=== PATIENT | male | born 1935 | race Caucasian/White ===

== ENCOUNTER 2016-09-02 11:21 | Emergency (ER) | payer MEDICARE ==
[2016-09-02 12:48] VITALS: BP 117/67
--- NOTE | 2016-09-02 14:21 | UC ---
Throat Pain/Nasal Miguel HPI - HPI Summary HPI Summary: complaint of sore throat since yesterday can't swallow duie pain nasal congestion and cough that started this morning productive cough this morning felt fever and chills today hx of lymphoma, multiple rounds of pneumonia last 2015 - History of Current Complaint Chief Complaint: UCRespiratory Stated Complaint: COUGH Time Seen by Provider: 09/02/16 14:16 Hx Obtained From: Patient - Allergies/Home Medications Allergies/Adverse Reactions: Allergies Allergy/AdvReac Type Severity Reaction Status Date / Time Celecoxib [From Celebrex] Allergy Mild stomach Verified 09/02/16 12:40 upset Morphine Allergy SEIZURE Verified 09/02/16 12:40 PMH/Surg Hx/FS Hx/Imm Hx Previously Healthy: Yes Endocrine History Of: Denies: Diabetes Cardiovascular History Of: Reports: Hypertension Denies: Congestive Heart Failure Respiratory History Of: Reports: Pneumonia GI/ History Of: Reports: Kidney Stones - HX OF Denies: Renal Disease - Surgical History Surgical History: Yes Surgery Procedure, Year, and Place: tonsilectomy age-40-, right arm, surgical removal kidney stone 1983,rotator cuff left, bilat knees, cholecystectomy - Family History Known Family History: Positive: Hypertension Negative: Cardiac Disease, Diabetes - Social History Occupation: Retired Lives: With Family Alcohol Use: Occasionally Substance Use Type: Prescribed Smoking Status (MU): Former Smoker Amount Used/How Often: 1 PPD X 44 YEARS AGO When Did the Patient Quit Smoking/Using Tobacco: 1970 - Immunization History Most Recent Influenza Vaccination: 2016 Most Recent Tetanus Shot: 2014 Most Recent Pneumonia Vaccination: STATES HAS HAD Review of Systems Constitutional: Chills, Fatigue Skin: Negative Eyes: Negative ENT: Sore Throat, Nasal Discharge Respiratory: Cough Cardiovascular: Negative Gastrointestinal: Negative Genitourinary: Negative Motor: Negative Neurovascular: Negative Musculoskeletal: Negative Neurological: Negative Psychological: Negative All Other Systems Reviewed And Are Negative: Yes Physical Exam Triage Information Reviewed: Yes Appearance: No Pain Distress, Well-Nourished Vital Signs: Initial Vital Signs Temp 99.4 F 09/02/16 12:43 Pulse 101 09/02/16 12:43 Resp 20 09/02/16 12:43 BP 117/67 09/02/16 12:43 Pulse Ox 97 09/02/16 12:43 Vital Signs Reviewed: Yes Eyes: Positive: Conjunctiva Clear ENT: Positive: Pharyngeal erythema, Nasal congestion, Nasal drainage, TMs normal , Tonsillar swelling - left side- no tonsil on right side, Tonsillar exudate Neck: Positive: Enlarged Nodes @ - cervical lymphadenopathy Respiratory: Positive: Lungs clear, Normal breath sounds, No respiratory distress Cardiovascular: Positive: RRR, No Murmur Abdomen Description: Positive: Nontender, Soft Bowel Sounds: Positive: Present Musculoskeletal: Positive: No Edema Neurological: Positive: Alert Psychological Exam: Normal Skin Exam: Normal Throat Pain/Nasal Course/Dx - Course Course Of Treatment: exam completd. will treat for tonsilitis d/t presentation comorbidity of lymphoma - Differential Dx/Diagnosis Differential Diagnosis/HQI/PQRI: Pharyngitis, Tonsillitis, URI Provider Diagnoses: tonsilitis Discharge - Discharge Plan Condition: Stable Disposition: HOME Prescriptions: Clarithromycin TAB* [Biaxin TAB*] 500 mg PO BID #20 tab Patient Education Materials: Tonsillitis (ED) Referrals: [facility] [Outside] Additional Instructions: TONSILLITIS What is Tonsillitis? Tonsillitis is an infectious condition with symptoms characterized by inflamed tonsils, fever, painful swallowing, sore throat, and a slight voice change. Other symptoms include a white or yellow coating on the tonsils, swollen lymph nodes, headache, and bad breath. Nausea, vomiting, and abdominal pain may occur in younger children. Throat infection (pharyngitis) often occurs along with tonsillitis. Tonsillitis may be caused by either viruses or bacteria, and often the symptoms are the same no matter which germ is causing the infection. Bacterial tonsillitis can be treated with antibiotics, but viral tonsillitis cannot. Sometimes healthcare providers differentiate between the two by taking a throat culture (a painless swab of the back of the throat) or a quick step test and send it to the lab. Eighty-five percent of throat cultures are negative for strep; the majority of infections are caused by a virus. Symptoms Might Include: Mild to severe sore throat and difficulty swallowing Fever Swollen, tender neck glands Headache Muscle and joint pain Loss of appetite Ear ache Breathing through the mouth Nausea or vomiting How Long Will My Symptoms Last? When tonsillitis is caused by Group A streptococci, fever usually stops within 48 hours, and the sore throat disappears soon afterward. With antibiotic treatment, the illness is usually cured within 1 week, but it may take several weeks for the tonsils and swollen glands to return to normal size. When tonsillitis is caused by viruses, the length of illness depends on which virus is involved. Most people are almost completely recovered within 1 week. Contagiousness: All forms of tonsillitis are contagious. Tonsillitis usually spreads from person to person by contact with the throat or nasal fluids of someone who is already infected. Drinking glasses and eating utensils should be kept separate from those of other family members and should be washed with hot soapy water, or washed in the hot mill supervisor. All family members should was their hand frequently. If you have a cough, be sure to cover your mouth when coughing. Place used tissues directly in the garbage can. Revised 2015 Page 2 of 2
== END 2016-09-02 14:50 | disposition home or self-care (01) ==
LOC: UCCORT 11:21
DX: J03.90 Acute tonsillitis, unspecified (principal); Z85.72 Personal history of non-Hodgkin lymphomas; Z87.891 Personal history of nicotine dependence; Z88.5 Allergy status to narcotic agent; Z88.6 Allergy status to analgesic agent
CPT/HCPCS: 99212; G0463

== ENCOUNTER 2019-01-15 08:24 | Day surgery (SDC) | payer MEDICARE ==
[~2019-01-15 08:24] MED LIST: Buffered Lidocaine 1% SYRIN* 1 ML/SYRINGE INTRADERM ONE; Lactated Ringers 1000 ML Bag* 1,000 ML IV SCH; Sodium Citrate/Citric Acid* 15 ML UDC PO ONE
[2019-01-15] MEDS ORDERED: ceFAZolin 2 GM in NS PREMIX(*) 2 GM/100 ML BAG IVPB ONE (08:53)
[2019-01-15] MEDS ORDERED: Sodium Citrate/Citric Acid* 15 ML UDC ONE (08:53)
[2019-01-15] MEDS ORDERED: Naloxone* 0.4 MG/ML 1 ML VIAL IV PRN (09:17)
[2019-01-15] MEDS ORDERED: Bupivacaine 0.25% EPI 200,000* 30 ML SDV ONE (09:39)
[2019-01-15] MEDS ORDERED: Bupivacaine 0.25% SDV PF* 10 ML VIAL INJ ONE (09:53)
[2019-01-15] MEDS ORDERED: Propofol* 10 MG/ML 20 ML BTL ONE (09:57)
[2019-01-15] MEDS ORDERED: Lidocaine 2% PF * 5 ML VIAL ONE (09:57)
[2019-01-15] MEDS ORDERED: fentaNYL* 50 MCG/ML 2 ML VIAL (100 MCG VIAL) ONE (09:57)
--- NOTE | 2019-01-15 11:24 | OP ---
DATE OF OPERATION: 01/15/19 - [facility] DATE OF : 31 SURGEON: Bc Bañuelos MD. PRE-OP DIAGNOSIS: Left axillary adenopathy. POST-OP DIAGNOSIS: Left axillary adenopathy. OPERATIVE PROCEDURE: Excised large left axillary lymph node. INDICATIONS: History of lymphoma and new large left axillary nodes. Risks of excision including but not limited to bleeding, infection, seroma were explained to the patient, who seemed to understand and agreed to the procedure and all questions were answered. DESCRIPTION OF PROCEDURE: The patient was taken to the operating room and placed supine. Preoperative antibiotics were given. After the successful induction of sedation, the left axilla was prepped and draped in sterile fashion. The skin was anesthetized with 0.25% Marcaine plain. Incision was made over the palpable node and carried down to the deep subcutaneous tissue. Within the axilla was a large 3 cm lymph node, which was sharply and bluntly excised from the surrounding tissue. Bovie cautery was used for hemostasis. The vascular branch was tied off with 2-0 Vicryl. The wound was irrigated. Estimated blood loss minimal. Hemostasis was intact. The node was sent fresh to pathology. Deep layers were closed with 3-0 Vicryl and the skin was closed with 3-0 Monocryl. Glue was applied. He tolerated the procedure well. [id number]/[facility] #: [id number] MTDD
[2019-01-15] MEDS ORDERED: Acetaminophen TAB* 325 MG ONE (11:34)
[2019-01-15 11:36] VITALS: BP 93/55
== END 2019-01-15 20:50 | disposition home or self-care (01) ==
LOC: OR 08:24
PROVIDERS: ATTEND Surgery
DX: C85.84 Other specified types of non-Hodgkin lymphoma, lymph nodes of axilla and upper limb (principal); C91.10 Chronic lymphocytic leukemia of B-cell type not having achieved remission; Z86.711 Personal history of pulmonary embolism; Z79.01 Long term (current) use of anticoagulants; M19.90 Unspecified osteoarthritis, unspecified site; D64.9 Anemia, unspecified
CPT/HCPCS: 88184; 88187; 88188; 88189; 88305; 88333; 88341; 88342; 88360; A9270-GY; J0690; J2704; J3010; J3490

== ENCOUNTER 2019-01-21 09:16 | Inpatient (IN) | payer MEDICARE ==
[2019-01-21 10:27] LABS: Urine Appearance Clear; Urine Bacteria Absent (Absent); Urine Bilirubin Negative (Negative); Urine Blood Negative (Negative); Urine Color Yellow; Urine Glucose Negative (Negative); Urine Ketones Negative (Negative); Urine Nitrite Negative (Negative); Urine Protein Negative (Negative); Urine Red Blood Cell Trace(0-2/hpf) (Absent); Urine Specific Gravity 1.012 (1.010-1.030); Urine Squamous Epithelial Cell Present (Absent); Urine Urobilinogen Negative (Negative); Urine White Blood Cell Trace(0-5/hpf) (Absent)
[2019-01-21 11:08] LABS: Hematocrit 24 % (42-52); Hemoglobin 7.7 g/dL (14.0-18.0); Mean Corpuscular HGB Conc 33 g/dL (31-36); Mean Corpuscular Hemoglobin 27 pg (27-31); Mean Corpuscular Volume 84 fL (80-94); Mean Platelet Volume 7.1 fL (7.4-10.4); Platelet Count 181 10^3/uL (150-450); Red Blood Count 2.82 10^6 /uL (4.18-5.48); Red Cell Distribution Width 19 % (10-15)
[2019-01-21 11:19] LABS: ALT 5 U/L (7-52); AST 9 U/L (13-39); Albumin 1.7 g/dL (3.2-5.2); Albumin/Globulin Ratio 0.6 (1-3); Alkaline Phosphatase 106 U/L (34-104); Anion Gap 2 mmol/L (2-11); BUN/Creatinine Ratio 20.3 (8-20); Blood Urea Nitrogen 12 mg/dL (6-24); CO2 Carbon Dioxide 30 mmol/L (22-32); Calcium 7.8 mg/dL (8.6-10.3); Chloride 106 mmol/L (101-111); EGFR Non-African American 130.6 (>60); Globulin 2.9 g/dL (2-4); Glucose 93 mg/dL (70-100); Magnesium 1.9 mg/dL (1.9-2.7); Sodium 138 mmol/L (135-145); Total Protein 4.6 g/dL (6.4-8.9)
--- OUTSIDE RECORDS SUMMARY | 2019-01-21 11:21 | XMS REPORT | Continuity of Care Document ---
:1935 External Reference #:[id number] Author Name Shannon Lion Care Team Providers Name Role Phone Vincent James NP Primary Care Physician Unavailable Payers Date Identification Numbers Payment Provider Subscriber Effective: 2018 Policy Number: [id number] Medicare Kaden Salazar PayID: [id number] [address] [place] [address] Effective: 1997 Policy Number: [id number] Medicare Kaden Salazar Expires: 2018 Group Name: Medicare [address] PayID: [id number] [place] [address] Policy Number: [id number] [facility] Kaden Delong [place] PayID: [id number] [address] [place] [address] Onset: 1999 Policy Number: [id number] Special Funds Sec 25-A Kaden Salazar Group Number: [id number] [address] PayID: [id number] [place] [address] Onset: 2005 Policy Number: [id number] [employer] Kaden Salazar Group Number: [id number] [address] PayID: [id number] [place] [address] Policy Number: [id number] WC Controverted Kaden Delong Martin Group Number: [id number] Nca Comp PayID: [id number] Onset: 1999 Group Name: Workers[employer] Compensation Mobile [place] Kaden Salazar [address] [place] [address] Problems Active Problems Provider Date Cervical spondylosis without myelopathy Agusto Urbano M.D. Onset: 11/17/2016 Neck pain Agusto Urbano M.D. Onset: 11/17/2016 Flatulence, eructation and gas pain Mikaela Garcia NP Onset: 09/19/2018 History of non-Hodgkins lymphoma Mikaela Garcia NP Onset: 09/19/2018 Family History Date Family Member(s) Observation Comments General Unknown Father due to Leukemia () Mother due to Childbirth () Siblings 3 one brother at 17 from Hodgkins Lymphoma one brother at 85 old age sister has cancer/lymphoma Social History Type Date Description Comments Sex Unknown Marital Status Lives With Occupation Retired shuttle bus driver ETOH Use Occasionally consumes alcohol Tobacco Use Start: Unknown End: Patient is a former smoker Unknown Smoking Status Reviewed: 01/08/19 Patient is a former smoker Allergies, Adverse Reactions, Alerts Active Allergies Reaction Severity Comments Date Celebrex GI upset 08/01/2013 Rituximab anaphylaxis 11/17/2016 Morphine seizure 12/13/2016 Medications Active Medications SIG Qnty Indications Ordering Provider Date Zantac 150 Maximum take one pill 90tabs Mikaela Garcia NP 08/01/2018 Strength every evening 150mg Tablets Lyrica 1 capsule by Unknown 225mg Capsules mouth daily Xarelto 1 tab daily Unknown 10mg Tablets Alfuzosin HCL ER Take One Tablet Unknown 10mg By Mouth Daily Tablets ER 24HR Omeprazole 1 by mouth every Unknown 40mg day Capsules DR Vitamin B12 1 by mouth every Unknown 1000mcg day Tablets ER History Medications Acid Wood Last Maker Mikaela Garcia NP 07/04/2018 - 75mg 07/04/2018 Tablets Acid Wood Last Maker take one at night 30tabs Mikaela Garcia NP 07/04/2018 - 150mg 07/27/2018 Tablets Amoxicillin take 4 tabs by 4czoie Hardy 09/16/2015 - 500mg mouth 1 hour prior M.D. 12/12/2016 Capsules to dental work Ranitidine 150 one by mouth once 90tabs Mikaela Garcia NP - Maximum Strength a day 08/01/2018 150mg Tablets Gabapentin 1 by mouth two Unknown - 300mg times a day 07/27/2018 Capsules Pantoprazole Sodium 1 by mouth every Unknown - day 07/03/2018 40mg Tablets Nystjamil Use Three Times A Unknown - 307650Polv/GM Day To Area Of 07/03/2018 Powder Rash Under Breast Hydroxyzine HCL Take One Tablet By Unknown - 25mg Mouth Twice A Day 07/26/2018 Tablets as Needed Vitamin D-400 1 by mouth every Unknown - 400 day 07/26/2018 Tablets Albuterol Sulfate 2 puffs every 4 Unknown - hours as needed 07/03/2018 Powder sob Coumadin take as directed Unknown - Tablets 07/03/2018 Fish Oil 1 by mouth every Unknown - 1000mg day 12/12/2016 Capsules Ibuprofen 2 po every4- 6 Unknown - 200mg Tablets hours as needed 07/04/2018 Bactroban topically bid prn 15gm Unknown - 2% Cream 12/12/2016 Vitamin B-12 CR 1 po qd Unknown - 12/12/2016 400Units Tablets ER Vitamin E-400 1 po qd Unknown - 400Unit 12/12/2016 Capsules Omeprazole 1 po qd 90caps Unknown - 40mg 12/12/[address] Losartan Potassium 1 po qd 90tabs Unknown - 07/03/2018 100mg Tablets Lyrica 1 po daily. 60caps Unknown - 225mg Capsules 07/03/2018 Medications Administered in Office Medication SIG Qnty Indications Ordering Provider Date Depomedrol 40MG Carlota Hardy M.D. 12/13/2016 Injection Depomedrol 80MG Carlota Hardy M.D. 08/01/2013 Injection Depomedrol 80MG Carlota Hardy M.D. 08/01/2013 Injection Depomedrol 80MG Carlota Hardy M.D. 08/01/2013 Injection Immunizations CPT Code Status Date Vaccine Lot # [id number] Given 06/27/2018 Influenza Virus Vaccine, Quadrivalent, Split, [id number] Preservative Free [id number] Given 05/09/1998 Flu Vaccine 85711 Given 05/08/1996 Flu Vaccine 05513 Given 07/14/1995 Flu Vaccine 77723 Given 06/07/1994 Flu Vaccine Vital Signs Date Vital Result Comment 01/08/2019 1:25pm Height 66 inches 5'6" Weight 166.00 lb Heart Rate 90 /min BP Systolic Sitting 122 mmHg BP Diastolic Sitting 54 mmHg Respiratory Rate 20 /min Body Temperature 97.6 F BMI (Body Mass Index) 26.8 kg/m2 09/19/2018 2:42pm Height 66 inches 5'6" Weight 181.12 lb Heart Rate 88 /min BP Systolic Sitting 116 mmHg large adult cuff left arm BP Diastolic Sitting 66 mmHg large adult cuff left arm O2 % BldC Oximetry 98 % at rest on room air BMI (Body Mass Index) 29.2 kg/m2 08/29/2018 1:16pm Height 66 inches 5'6" Weight 182.00 lb Heart Rate 80 /min BP Systolic 117 mmHg BP Diastolic 62 mmHg Respiratory Rate 20 /min Body Temperature 96.0 F O2 % BldC Oximetry 99 % BMI (Body Mass Index) 29.4 kg/m2 08/01/2018 2:30pm Height 66 inches 5'6" Weight 184.00 lb Heart Rate 90 /min BP Systolic 127 mmHg BP Diastolic 65 mmHg Respiratory Rate 20 /min Body Temperature 97.9 F O2 % BldC Oximetry 96 % BMI (Body Mass Index) 29.7 kg/m2 07/04/2018 1:43pm Height 66 inches 5'6" Weight 194.00 lb Heart Rate 95 /min BP Systolic 101 mmHg BP Diastolic 62 mmHg Respiratory Rate 20 /min Body Temperature 97.9 F O2 % BldC Oximetry 97 % BMI (Body Mass Index) 31.3 kg/m2 12/13/2016 10:58am Height 66 inches 5'6" Weight 188.00 lb Heart Rate 88 /min BP Systolic 124 mmHg BP Diastolic 66 mmHg Respiratory Rate 17 /min Body Temperature 96.3 F BMI (Body Mass Index) 30.3 kg/m2 11/17/2016 1:32pm Height 67 inches 5'7" Weight 188.00 lb Heart Rate 80 /min BP Systolic Sitting 128 mmHg BP Diastolic Sitting 78 mmHg Pain Level 4 BMI (Body Mass Index) 29.4 kg/m2 08/01/2013 10:36am Height 67 inches 5'7" Weight 200.00 lb BMI (Body Mass Index) 31.3 kg/m2 Results Test Date Facility Test Result H/L Range Note Laboratory test 02/05/201 [facility] Vitamin B12 1343 pg/mL High 180-914 1 finding 9 [address] [place] [address] [phone] Protein [facility] Total 5.5 g/dL Abnormal 6.3 - 7.9 Electrophoresis 9 101 [facility] Protein([place] [address] ) [phone] Albumin 2.2 g/dL Abnormal 3.4-4.7 Alpha-1 Globulin 0.3 g/dL 0.1-0.3 Alpha-2 Globulin 0.8 g/dL 0.6-1.0 Beta Globulin 0.7 g/dL 0.7-1.2 Gamma Globulin 1.4 g/dL 0.6-1.6 Albumin/Globulin Ratio 0.66 M Emanuel 0.5 g/dL Impression See Comment 2 Laboratory test 08/29/2018 [facility] Ferritin 343.7 ng/mL High 24-336 finding [address] [place] [address] [phone] Iron & Iron 08/29/2018 [facility] Iron 40 g/dL Low 50-212 [place] [address] [phone] Unsaturated Iron Binding < 136 g/dL Total Iron Binding Capacity 151 g/dL Low 250-450 Transferrin 108 mg/dL Low 203-362 % Iron Saturation 26 % N 15-55 CBC No Diff 08/29/2018 [facility] White Blood 4.3 10^3/uL N 3.5-10.8 [facility] [place] [address] [phone] Red Blood Count 3.37 10^6/uL Low 4.00-5.40 Hemoglobin 9.8 g/dL Low 14.0-18.0 Hematocrit 30 % Low 42-52 Mean Corpuscular Volume 88 fL N 80-94 Mean Corpuscular Hemoglobin 29 pg N 27-31 Mean Corpuscular HGB Conc 33 g/dL N 31-36 Red Cell Distribution Width 15 % N 10.5-15 Platelet Count 246 10^3/uL N 150-450 Mean Platelet Volume 7.3 fL Low 7.4-10.4 Laboratory 08/29/2018 [facility] Erythropoietin 26.7 Abnormal 2.6 - 3 test finding 101 [facility] mIU/mL 18.5 [place] [address] [phone] LDH 114 U/L Low 140-271 Uric Acid 4.5 mg/dL N 4.4-7.6 Laboratory test 08/01/2018 [facility] Amylase 21 U/L Low 29- 103 finding [address] [place] [address] [phone] CBC No Diff 08/01/2018 [facility] White Blood 3.8 N 3.5-10.8 101 Count 10^3/[place] [address] [phone] Red Blood Count 3.30 10^6/uL Low 4.00-5.40 Hemoglobin 9.9 g/dL Low 14.0-18.0 Hematocrit 29 % Low 42-52 Mean Corpuscular Volume 88 fL N 80-94 Mean Corpuscular Hemoglobin 30 pg N 27-31 Mean Corpuscular HGB Conc 34 g/dL N 31-36 Red Cell Distribution Width 14 % N 10.5-15 Platelet Count 239 10^3/uL N 150-450 Mean Platelet Volume 7.8 fL N 7.4-10.4 Laboratory test 08/01/2018 [facility] Lipase 11 U/L N 11.0- 82.0 finding [address] [place] [address] [phone] Comp Metabolic Panel 08/01/2018 [facility] Sodium 137 mmol/L N 135-145 [address] [place] [address] [phone] Potassium 4.3 mmol/L N 3.5-5.0 Chloride 102 mmol/L N 101-111 Co2 Carbon Dioxide 31 mmol/L N 22-32 Anion Gap 4 mmol/L N 2-11 Glucose 120 mg/dL High 70-100 Blood Urea Nitrogen 14 mg/dL N 6-24 Creatinine 0.80 mg/dL N 0.67-1.17 BUN/Creatinine Ratio 17.5 N 8-20 Calcium 8.9 mg/dL N 8.6-10.3 Total Protein 5.8 g/dL Low 6.4-8.9 Albumin 3.1 g/dL Low 3.2-5.2 Globulin 2.7 g/dL N 2-4 Albumin/Globulin Ratio 1.1 N 1-3 Total Bilirubin 0.60 mg/dL N 0.2-1.0 Alkaline Phosphatase 96 U/L N 34-104 Alt 6 U/L Low 7-52 Ast 10 U/L Low 13-39 Egfr Non- 92.1 >60 Egfr 111.4 >60 4 1 Normal Range 180 to 914 Indeterminate Range 145 to 180 Deficient Range <145 2 M-spike in gamma fraction. Size of monoclonal protein not changed significantly since 03/07/2018 Test Performed by: [facility] [address] [place] [address] 3 Test Performed by: [facility] [address] [place] [address] 4 Because ethnic data is not always readily available, this report includes an eGFR for both -Americans and non- Americans. The National Kidney Disease Education Program (NKDEP) does not endorse the use of the MDRD equation for patients that are not between the ages of 18 and 70, are , have extremes of body size, muscle mass, or nutritional status, or are non- or non-. According to the National Kidney Foundation, irrespective of diagnosis, the stage of the disease is based on the level of kidney function: Stage Description GFR(mL/min/1.73 m(2)) 1 Kidney damage with normal or decreased GFR 90 2 Kidney damage with mild decrease in GFR 60-89 3 Moderate decrease in GFR 30-59 4 Severe decrease in GFR 15-29 5 Kidney failure <15 (or dialysis) Procedures Date Code Description Status 12/13/2016 Inject/Drain Joint/Bursa Small W/O US Completed 08/01/2013 79885 Rad Shoulder Comp, Min. 2 Views Completed 08/01/2013 54673 Rad Shoulder Comp, Min. 2 Views Completed 08/01/2013 Inject/Drain Joint/Bursa Major W/O US Completed 08/01/2013 Inject/Drain Joint/Bursa Major W/O US Completed 08/01/2013 Inject/Drain Joint/Bursa Major W/O US Completed Encounters Type Date Location Provider Dx Diagnosis Office Visit 09/19/2018 [facility] Mikaela Garcia NP Z85.72 Personal history 2:30p of non-Hodgkin lymphomas R14.0 Abdominal distension (gaseous) Office Visit 08/29/2018 1:00p [facility] Mikaela R14.0 Abdominal Garcia, GENERAL INTERNAL MEDICINE DOCTOR distension (gaseous) R14.3 Flatulence F51.12 Insufficient sleep syndrome Office 08/01/2018 [facility] Mikaela K21.9 Gastro-esophageal Visit 1:00p Garcia, GENERAL INTERNAL MEDICINE DOCTOR reflux disease without esophagitis Z79.01 long-term (current) use of anticoagulants R10.30 Lower abdominal pain, unspecified Office 07/04/2018 [facility]enter[facility] Mikaela K21.9 Gastro-esophageal Visit 1:00p Garcia, GENERAL INTERNAL MEDICINE DOCTOR reflux disease without esophagitis Office 06/27/2018 [facility] Elieser Z51.11 Encounter for Visit 11:00a Of [facility] AT [place] Diogo Brewer antineoplastic chemotherapy Z85.72 Personal history of non-Hodgkin lymphomas L29.9 Pruritus, unspecified K21.9 Gastro-esophageal reflux disease without esophagitis Z23 Encounter for immunization Office Visit 03/21/2018 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 Elieser Brewer C88.0 [place] 11:40a [facility] macroglobulinemia AT [place] R21 Rash and other nonspecific skin eruption Office Visit 01/24/2018 11:00a 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 Elieser Brewer Z51.11 Encounter for [facility] antineoplastic AT [place] chemotherapy C88.0 [place] macroglobulinemia Office Visit 09/06/2017 [facility] Elieser Brewer, C88.0 [place] 2:00p [facility] macroglobulinemia AT [place] L29.9 Pruritus, unspecified R10.84 Generalized abdominal pain Office Visit 08/23/2017 [facility] Maeve Brewer, C88.0 [place] 11:20a [facility] macroglobulinemia AT [place] R10.84 Generalized abdominal pain L29.9 Pruritus, unspecified D64.9 Anemia, unspecified R60.9 Edema, unspecified Office Visit 07/12/2017 10:20a [facility] Maeve Brewer, R10.84 Generalized [facility] abdominal pain AT [place] R18.8 Other ascites R93.41 Abn radlgc find on dx imaging renal pelv, ureter, or blddr D47.2 Monoclonal gammopathy Z85.72 Personal history of non-Hodgkin lymphomas Office Visit 12/13/2016 [facility] Carlota 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, r hand Office Visit 11/17/2016 Neurosurgery Agusto Urbano, M54.2 Cervicalgia 1:00p [facility] M47.812 Spondylosis w/o myelopathy or radiculopathy, cervical region M54.2 Cervicalgia Office Visit 07/27/2016 1:00p [place] Maeve Brewer, R10.84 Generalized [facility] abdominal pain AT [place] R93.41 Abn radlgc find on dx imaging renal pelv, ureter, or blddr D47.2 Monoclonal gammopathy Z85.72 Personal history of non-Hodgkin lymphomas Office Visit 07/13/2016 11:00a [place] Maeve Brewer, R10.84 Generalized [facility] abdominal pain AT [place] Z85.72 Personal history of non-Hodgkin lymphomas D47.2 Monoclonal gammopathy Z79.01 long-term (current) use of anticoagulants Office Visit 06/03/2014 [facility] Kim Zacarias, 415.19 Pulmonary 6:21p Assoc,nilay [facility] Embolism And Hospitalists Infarction Other 202.80 Lymphoma Other Unspec Extranodal & Solid Organ Sites 401.9 Hypertension Unspec [facility] Systemic 6:20p nilay Orta II, M.D. Inflammatory Hospitalists Response Syndrome, Unspecified 202.80 Lymphoma Other Unspec Extranodal & Solid Organ Sites 415.19 Pulmonary Embolism And Infarction Other 401.9 Hypertension Unspec Office Visit 08/01/2013 9:00a Orthopedic Carlota Hardy, 719.41 Pain Joint [facility] Diogo Shoulder Region AT [place] 715.96 Osteoarthrosis Unspec Genlzd Or Localized Lower Leg 715.91 Osteoarthrosis Unspec Genlzd Or Localized Shoulder 719.41 Pain Joint Shoulder Region 719.41 Pain Joint Shoulder Region 715.91 Osteoarthrosis Unspec Genlzd Or Localized Shoulder 715.91 Osteoarthrosis Unspec Genlzd Or Localized Shoulder Plan of Treatment Future Appointment(s):01/15/2019 10:30 am - Bc Bañuelos MD at [facility]01/09/2019 2:40 pm - Elieser Brewer M.D. at [facility]
[2019-01-21 11:32] LABS: ABS Monocytes 0.7 10^3/ul (0-0.8); ABS Neutrophils 2.3 10^3/ul (1.5-7.7); Eosinophil % 0.6 %; Lymphocyte % 40.3 %; Nucleated Red Blood Cells % 0.1
[2019-01-21 14:37] LABS: Prealbumin < 3 mg/dL (18-38)
[2019-01-21] MEDS ORDERED: Acetaminophen TAB* 325 MG PO PRN (14:53)
[2019-01-21] MEDS ORDERED: Furosemide IV* 10 MG/ML VIAL (40 MG) IV SLOW PU ONE ×2 (14:58→18:00)
[2019-01-21] MEDS ORDERED: Enoxaparin(*) 40 MG/0.4 ML SYR SUBCUT SCH (16:00)
--- NOTE | 2019-01-21 16:41 | ED ---
Complex/Multi-Sys Presentation - HPI Summary HPI Summary: Patient is an 83-year-old male with a history of non-Hodgkin's lymphoma who presents to the ED with worsening weakness over the past 2 days ( states 1 week), and the inability to walk at this point due to leg heaviness. He does have a history of leg and arm swelling in the past, and is unsure how it was treated he states. states he has been falling more frequently and she is unable to lift him and he is typically ambulatory without the need of assistance. He has not had chemotherapy treatment for over one year, however continues to see Dr. Brewer. History of PE and is currently on Xarelto. He denies any sources of active bleeding, including melena or hematochezia, hematemesis or increased bruising. Denies any cardiac disease. He endorses a recent surgical history of left lymph node excision for LAD. Denies fevers, sweats, chills. Denies any chest pain or shortness of breath. Symptoms are not aggravated or alleviated with sitting upright or lying flat. His main concern today is the heaviness of his bilateral lower extremities. - History Of Current Complaint Chief Complaint: EDWeakness Time Seen by Provider: 01/21/19 09:28 Hx Obtained From: Patient Onset/Duration: Gradual Onset Timing: Constant Severity Currently: Moderate Severity Initially: Moderate - Allergies/Home Medications Allergies/Adverse Reactions: Allergies Allergy/AdvReac Type Severity Reaction Status Date / Time celecoxib Allergy Mild GI Upset Verified 01/15/19 09:09 morphine Allergy See Comment Verified 01/15/19 09:09 rituximab Allergy anaphylaxis Verified 01/15/19 09:09 PMH/Surg Hx/FS Hx/Imm Hx Previously Healthy: Yes Endocrine/Hematology History: Reports: Hx Bone Marrow Disease - NON HODGKINS LYMPHOMA, Hx Anemia - 2 transfusions Denies: Hx Diabetes, Hx Systemic Lupus Erythematosus Cardiovascular History: Reports: Hx Embolism - now, Hx Hypercholesterolemia, Hx Hypertension - pt stopped medication Denies: Hx Congestive Heart Failure Respiratory History: Reports: Hx Pneumonia, Hx Pulmonary Embolism - on blood thinner, Hx Sleep Apnea - MILD Denies: Other Respiratory Problems/Disorders GI History: Reports: Hx Gastroesophageal Reflux Disease, Hx Hiatal Hernia Denies: Other GI Disorders History: Reports: Hx Kidney Stones - HX OF, Other Problems/Disorders - bph Denies: Hx Dialysis, Hx Renal Disease Musculoskeletal History: Reports: Hx Arthritis - RIGHT KNEE, SHOULDER AND NECK, LEFT HIP, Other Musculoskeletal History - right arm surgery hx, bilat knee Sx Denies: Hx Rheumatoid Arthritis Sensory History: Reports: Hx Cataracts - haley, Hx Contacts or Glasses - READING, Hx Hearing Aid - BILATERAL Opthamlomology History: Reports: Hx Cataracts - haley, Hx Contacts or Glasses - READING Neurological History: Reports: Hx Nerve Disease - neuropathy right foot, Other Neuro Impairments/Disorders - hx neuropathy right foot - Cancer History Cancer Type, Location and Year: non-hodgkins lymphoma 2013 Hx Chemotherapy: Yes - Surgical History Surgery Procedure, Year, and Place: tonsilectomy age-40-. , right arm,48 yrs ago. surgical removal kidney stone 1983,. rotator cuff left,. bilat knees replacements. cholecystectomy. sinus surgery x3 Hx Anesthesia Reactions: Yes - morphine allergy - Immunization History Hx Pertussis Vaccination: No Immunizations Up to Date: Yes Infectious Disease History: No Infectious Disease History: Denies: Traveled Outside the [place] in Last 30 Days - Family History Known Family History: Positive: Hypertension Negative: Cardiac Disease, Diabetes - Social History Occupation: Unemployed Lives: With Family Alcohol Use: Rare Hx Substance Use: No Substance Use Type: Reports: None Smoking Status (MU): Former Smoker Amount Used/How Often: pack a day Review of Systems Positive: Fatigue. Negative: Fever, Chills, Skin Diaphoresis Negative: Palpitations, Chest Pain Negative: Shortness Of Breath, Cough Genitourinary: Negative Positive: no symptoms reported, see HPI Positive: Edema - bilateral lower ext. Negative: Arthralgia, Myalgia Skin: Negative Negative: Anxious, Depressed All Other Systems Reviewed And Are Negative: Yes Physical Exam Triage Information Reviewed: Yes Vital Signs On Initial Exam: Initial Vitals Pulse Resp BP Pulse Ox 96 17 118/67 96 01/21/19 09:18 01/21/19 09:18 01/21/19 09:18 01/21/19 09:18 Vital Signs Reviewed: Yes Appearance: Positive: Well-Appearing Skin: Positive: Skin Color Reflects Adequate Perfusion Head/Face: Positive: Normal Head/Face Inspection Eyes: Positive: Conjunctiva Clear Neck: Positive: Supple, No Lymphadenopathy Respiratory/Lung Sounds: Positive: Clear to Auscultation, Breath Sounds Present Cardiovascular: Positive: Pulses are Symmetrical in both Upper and Lower Extremities, Leg Edema Left - +4, Leg Edema Right - +4 Musculoskeletal: Positive: Strength/ROM Intact Neurological: Positive: Alert, Oriented to Person Place, Time Psychiatric: Positive: Affect/Mood Appropriate Diagnostics - Vital Signs Vital Signs Temp Pulse Resp BP Pulse Ox 01/21/19 14:50 25 111/48 01/21/19 14:20 25 105/51 01/21/19 14:00 26 01/21/19 13:00 89 23 97 01/21/19 12:46 88 23 106/62 97 01/21/19 12:00 84 20 93 01/21/19 11:00 89 20 96 01/21/19 10:00 87 28 94 01/21/19 09:48 92 27 104/61 95 01/21/19 09:45 94 18 95 01/21/19 09:23 97.5 F 90 20 118/67 96 01/21/19 09:18 96 17 118/67 96 - Laboratory Lab Results: Lab Results 01/21/19 01/21/19 01/21/19 Range/Units 09:38 10:46 10:46 WBC 5.0 (3.5-10.8) 10^3/uL RBC 2.82 L (4.18-5.48) 10^6 /uL Hgb 7.7 L (14.0-18.0) g/dL Hct 24 L (42-52) % MCV 84 (80-94) fL MCH 27 (27-31) pg MCHC 33 (31-36) g/dL RDW 19 H (10-15) % Plt Count 181 (150-450) 10^3/uL MPV 7.1 L (7.4-10.4) fL Neut % (Auto) 45.2 % Lymph % (Auto) 40.3 % Wallace % (Auto) 13.5 % Eos % (Auto) 0.6 % Baso % (Auto) 0.4 % Absolute Neuts (auto) 2.3 (1.5-7.7) 10^3/ul Absolute Lymphs (auto) 2.0 (1.0-4.8) 10^3/ul Absolute Monos (auto) 0.7 (0-0.8) 10^3/ul Absolute Eos (auto) 0.0 (0-0.6) 10^3/ul Absolute Basos (auto) 0.0 (0-0.2) 10^3/ul Absolute Nucleated RBC 0.0 10^3/ul Nucleated RBC % 0.1 Sodium 138 (135-145) mmol/L Potassium 4.0 (3.5-5.0) mmol/L Chloride 106 (101-111) mmol/L Carbon Dioxide 30 (22-32) mmol/L Anion Gap 2 (2-11) mmol/L BUN 12 (6-24) mg/dL Creatinine 0.59 L (0.67-1.17) mg/dL Est GFR ( Amer) 158.0 (>60) Est GFR (Non-Af Amer) 130.6 (>60) BUN/Creatinine Ratio 20.3 H (8-20) Glucose 93 (70-100) mg/dL Lactic Acid (0.5-2.0) mmol/L Calcium 7.8 L (8.6-10.3) mg/dL Magnesium 1.9 (1.9-2.7) mg/dL Total Bilirubin 0.70 (0.2-1.0) mg/dL AST 9 L (13-39) U/L ALT 5 L (7-52) U/L Alkaline Phosphatase 106 H (34-104) U/L Troponin I 0.00 (<0.04) ng/mL B-Natriuretic Peptide (<=100) pg/mL Total Protein 4.6 L (6.4-8.9) g/dL Albumin 1.7 L (3.2-5.2) g/dL Globulin 2.9 (2-4) g/dL Albumin/Globulin Ratio 0.6 L (1-3) Prealbumin < 3 L (18-38) mg/dL Urine Color Yellow Urine Appearance Clear Urine pH 7.0 (5-9) Ur Specific [place] 1.012 (1.010-1.030) Urine Protein Negative (Negative) Urine Ketones Negative (Negative) Urine Blood Negative (Negative) Urine Nitrate Negative (Negative) Urine Bilirubin Negative (Negative) Urine Urobilinogen Negative (Negative) Ur Leukocyte Esterase Trace A (Negative) Urine WBC (Auto) Trace(0-5/hpf) (Absent) Urine RBC (Auto) Trace(0-2/hpf) (Absent) Ur Squamous Epith Cells Present A (Absent) Urine Bacteria Absent (Absent) Urine Glucose Negative (Negative) Blood Type Antibody Screen Crossmatch 01/21/19 01/21/19 01/21/19 Range/Units 10:46 10:46 10:46 WBC (3.5-10.8) 10^3/uL RBC (4.18-5.48) 10^6 /uL Hgb (14.0-18.0) g/dL Hct (42-52) % MCV (80-94) fL MCH (27-31) pg MCHC (31-36) g/dL RDW (10-15) % Plt Count (150-450) 10^3/uL MPV (7.4-10.4) fL Neut % (Auto) % Lymph % (Auto) % Wallace % (Auto) % Eos % (Auto) % Baso % (Auto) % Absolute Neuts (auto) (1.5-7.7) 10^3/ul Absolute Lymphs (auto) (1.0-4.8) 10^3/ul Absolute Monos (auto) (0-0.8) 10^3/ul Absolute Eos (auto) (0-0.6) 10^3/ul Absolute Basos (auto) (0-0.2) 10^3/ul Absolute Nucleated RBC 10^3/ul Nucleated RBC % Sodium (135-145) mmol/L Potassium (3.5-5.0) mmol/L Chloride (101-111) mmol/L Carbon Dioxide (22-32) mmol/L Anion Gap (2-11) mmol/L BUN (6-24) mg/dL Creatinine (0.67-1.17) mg/dL Est GFR ( Amer) (>60) Est GFR (Non-Af Amer) (>60) BUN/Creatinine Ratio (8-20) Glucose (70-100) mg/dL Lactic Acid 0.7 (0.5-2.0) mmol/L Calcium (8.6-10.3) mg/dL Magnesium (1.9-2.7) mg/dL Total Bilirubin (0.2-1.0) mg/dL AST (13-39) U/L ALT (7-52) U/L Alkaline Phosphatase (34-104) U/L Troponin I (<0.04) ng/mL B-Natriuretic Peptide 67 (<=100) pg/mL Total Protein (6.4-8.9) g/dL Albumin (3.2-5.2) g/dL Globulin (2-4) g/dL Albumin/Globulin Ratio (1-3) Prealbumin (18-38) mg/dL Urine Color Urine Appearance Urine pH (5-9) Ur Specific [place] (1.010-1.030) Urine Protein (Negative) Urine Ketones (Negative) Urine Blood (Negative) Urine Nitrate (Negative) Urine Bilirubin (Negative) Urine Urobilinogen (Negative) Ur Leukocyte Esterase (Negative) Urine WBC (Auto) (Absent) Urine RBC (Auto) (Absent) Ur Squamous Epith Cells (Absent) Urine Bacteria (Absent) Urine Glucose (Negative) Blood Type O Positive Antibody Screen Negative Crossmatch See Detail Result Diagrams: 01/21/19 10:46 01/21/19 10:46 Lab Statement: Any lab studies that have been ordered have been reviewed, and results considered in the medical decision making process. Complex Multi-Symp Course/Dx Course Of Treatment: During this course of treatment, the patient is evaluated for diffuse edema and increased weakness. is at bedside and states she is unable to lift him and care for him as he is too weak to stand on his own. Patient endorses heaviness in his bilateral lower extremities and is unable to ambulate at this time. History of non-Hodgkin's lymphoma.. He denies any cough. Denies fevers, sweats, chills. Labs obtained which show a decreased H& H at 7.7 and 24. Albumin 1.7. Prealbumin is less than 3. Discussed case with Aleks Mena, PAC, oncology who will see the patient and admit for further evaluation. Discussed with the who states she feels uncomfortable taking the patient home at this time. Chest x-ray obtained which shows no acute process including pulmonary edema or effusion. EKG shows no acute findings. Patient is DNR. - Diagnoses Provider Diagnoses: Edema, Fatigue - Physician Notifications Discussed Care Of Patient With: Aleks Mena Instructed by Provider To: Admit As Inpatient - Aleks will see patient in the ED Discharge - Sign-Out/Discharge Documenting (check all that apply): Patient Departure All imaging exams completed and their final reports reviewed: Yes Patient Received Moderate/Deep Sedation with Procedure: No - Discharge Plan Condition: Fair Disposition: ADMITTED TO [facility] - Billing Disposition and Condition Condition: FAIR Disposition: Admitted to [facility]
[2019-01-21] MEDS: Famotidine TAB* 20 MG PO SCH (17:58)
[2019-01-21] MEDS: Rivaroxaban TAB(*) 10 MG PO SCH (17:59)
--- NOTE | 2019-01-21 18:17 | HP ---
CC: Vincent James NP; Dr. Brewer * ADMISSION HISTORY AND PHYSICAL: DATE OF ADMISSION: 01/21/19 PRIMARY CARE PROVIDER: Vincent James NP. PRIMARY ONCOLOGIST: Dr. Elieser Brewer. ATTENDING PHYSICIAN: Dr. Villa Candelaria.* (DICTATED BY LAVON LEA) ADMITTING PROVIDER: LAVON Lea. CHIEF COMPLAINT: Weakness and lower extremity edema. HISTORY OF PRESENT ILLNESS: This is an 83-year-old gentleman with a history of lymphoplasmacytic lymphoma treated 3 times previously under the care of Dr. Brewer who presented to the emergency department with complaints of weakness and severe lower extremity edema. The patient was most recently seen by Dr. Brewer approximately 3 weeks ago, at which point he had reported some increased fatigue , lower extremity edema, recent falls, and was noted to have new left axillary lymphadenopathy on exam. The patient was noted to be anemic with a hemoglobin of 7.0 and received 2 units of packed red blood cells at that time. He subsequently underwent PET scan and excisional biopsy of left axillary lymph node over the last couple of weeks. The patient reports that he has had progressive weakness and got to the point that he was unable to walk today, which prompted visit to the emergency department. His lower extremity edema has become quite significant. He denies any history of cardiac disease and believes that he has previously been on some sort of fluid pills, but not recently. He states that his appetite has been poor, he ate very little yesterday, and in fact, his called the oncology service with concerns regarding diarrhea. He is afebrile and had no associated abdominal pain. She was given instructions to give him Imodium, which he states the diarrhea resolved after. In the emergency department, the patient is noted to have recurrent anemia with hemoglobin of 7.7. He denies any melena or hematochezia or other sources of obvious bleeding. He and his do not believe that his energy improved significantly after his transfusion a couple of weeks ago. He does have a documented hemoglobin of 9.1 from 01/10/19, 11 days ago. As noted above, the patient reports that he has been afebrile. No complaints of abdominal pain. He tolerated excisional biopsy well and states that the incision site has been healing. He denies any shortness of breath or cough. Regarding recent evaluation, excisional lymph node biopsy is reported as demonstrating CLL. PET scan demonstrated a moderate-sized left-sided pleural effusion as well as left axillary and periclavicular lymphadenopathy. The patient has a scheduled followup with Dr. Brewer for early next week to review these results. PAST MEDICAL HISTORY: 1. DVT, for which he is anticoagulated with Xarelto. 2. 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 3. GERD. 4. Hypertension. PAST SURGICAL HISTORY: Cholecystectomy. HOME MEDICATIONS: 1. Alfuzosin 10 mg p.o. daily. 2. Vitamin B12 at 1000 mcg p.o. daily. 3. Omeprazole 40 mg p.o. daily. 4. Lyrica 225 mg p.o. at bedtime. 5. Ranitidine 150 mg p.o. daily. 6. Xarelto 10 mg p.o. daily. SOCIAL HISTORY: The patient lives at home with his . Denies any significant smoking history. REVIEW OF SYSTEMS: As noted above in HPI, all other systems reviewed and otherwise negative. PHYSICAL EXAMINATION GENERAL: This is a relatively well-appearing 83-year-old, in no acute distress. VITAL SIGNS: Initial vitals, temperature 97.5 degrees Fahrenheit, pulse 90 beats per minute, respiratory rate 20, oxygen saturation 96% on room air, and blood pressure 118/67 mmHg. HEENT: Head is normocephalic, atraumatic. Mucous membranes are pink and moist. RESPIRATORY: Lungs are clear to auscultation without wheezes, crackles, or rhonchi. CARDIOVASCULAR: Heart has a regular rate and rhythm without murmurs, rubs, or gallops. ABDOMEN: Abdomen is soft, nontender to palpation. LYMPH NODE EVALUATION: The patient has a well-healed surgical incision in the left axilla. Difficult to appreciate whether he has additional lymphadenopathy versus resolving postsurgical hematoma, but there is a firm mass within the left axilla. No other adenopathy appreciated. EXTREMITIES: The patient has severe lower extremity edema, estimated at 3+ with pitting. No associated skin changes. DIAGNOSTIC STUDIES/LAB DATA: Laboratory Evaluation: CBC shows a white blood cell count of 5000, hemoglobin of 7.7 g/dL, and a platelet count of 181,000. Sodium of 138 mmol/L, potassium 4.0, BUN 12, creatinine 0.59. Lactic acid 0.7. Transaminases and total bilirubin within normal limits. Albumin is 1.7 with a prealbumin of less than 3. Urinalysis is unremarkable. Hospital Imaging: Chest x-ray, 01/21/19, shows a left lower lobe atelectasis with no definite pneumonia. ASSESSMENT AND PLAN: This is an 83-year-old gentleman with a history of recurrent lymphoplasmacytic lymphoma who was seen by Dr. Brewer earlier this month with concerns for recurrent PET scan and excisional lymph node biopsy suggesting this as well. 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 The patient has marked lower extremity edema that is prohibiting him from ambulating as well as complaints in the setting of recurrent anemia. The patient will subsequently be admitted to the hospital for further evaluation and management of his edema and anemia. 1. Lower extremity edema - The patient has marked hypoalbuminemia and a prealbumin of less than 3, which is most likely the cause of his edema. He denies any cardiac history or shortness of breath. Chest x-ray is not consistent with pulmonary edema or large effusions. For the sake of thoroughness, we will evaluate an echocardiogram, however, to evaluate left ventricular function. In terms of management, we will start with diuresis with Lasix, but we will request nutrition consultation as well to aid improved nutrition to increase protein status. 2. Anemia - This is likely due to recurrent malignancy, although a drop from 9.1 to 8.7 is rather significant over an 11-day period. He is anticoagulated with Xarelto and he denies melena. We will check stool for occult blood, but continue anticoagulation at this time. 3. History of lymphoplasmacytic lymphoma with concern for recurrent disease - The patient will review imaging and pathology further with Dr. Brewer, but this is likely the cause for his recurrent anemia and current fatigue. 4. History of deep vein thrombosis - Continue Xarelto. 5. Anemia - Transfuse 1 unit of packed red blood cells. Check stool for occult blood as discussed above. 6. Code status. The patient is DNR. MOLST form updated in the emergency department at the time of admission. 7. DVT prophylaxis - Continue chronic anticoagulation with Xarelto. DISPOSITION: The patient is being admitted to observation status for edema and weakness with plan as stated above. LAVON LEA [id number]/CPS #: [id number] TELLO
[2019-01-21] MEDS: Pregabalin CAP(*) 100 MG PO SCH (21:42)
[2019-01-21] MEDS: Pregabalin CAP(*) 25 MG PO SCH (21:42)
[2019-01-22 07:28] LABS: Hematocrit 25 % (42-52); Hemoglobin 8.1 g/dL (14.0-18.0); Mean Corpuscular HGB Conc 33 g/dL (31-36); Mean Corpuscular Hemoglobin 27 pg (27-31); Mean Corpuscular Volume 84 fL (80-94); Mean Platelet Volume 7.1 fL (7.4-10.4); Platelet Count 177 10^3/uL (150-450); Red Blood Count 2.94 10^6 /uL (4.18-5.48); Red Cell Distribution Width 18 % (10-15); White Blood Count 6.6 10^3/uL (3.5-10.8)
[2019-01-22 07:40] LABS: BUN/Creatinine Ratio 19.1 (8-20); Blood Urea Nitrogen 13 mg/dL (6-24); CO2 Carbon Dioxide 34 mmol/L (22-32); Calcium 7.4 mg/dL (8.6-10.3); Chloride 103 mmol/L (101-111); EGFR African American 134.1 (>60); EGFR Non-African American 110.8 (>60); Glucose 103 mg/dL (70-100); Potassium 3.8 mmol/L (3.5-5.0); Sodium 137 mmol/L (135-145)
[2019-01-22] MEDS: Cyanocobalamin TAB* 500 MCG PO SCH (08:22)
[2019-01-22] MEDS: Pantoprazole TAB * 40 MG TAB PO SCH (08:22)
[2019-01-22] MEDS: Furosemide IV* 10 MG/ML VIAL (40 MG) IV SLOW PU SCH (08:22)
[2019-01-22] MEDS: ALFUZOSIN 10 MG PO SCH (08:26)
[2019-01-22 08:45] LABS: ABS Monocytes 0.9 10^3/ul (0-0.8); ABS Neutrophils 2.6 10^3/ul (1.5-7.7); Eosinophil % 0.6 %; Lymphocyte % 45.7 %
--- NOTE | 2019-01-22 09:52 | PN ---
Progress Note - Progress Note Date of Service: 01/22/19 SOAP: Subjective: []Long standing lymphoplasacytic lymphoma. Has had therapy with BR several times with remission and a benign clinical course. Marked deterioration over past 2 months with progressive anemia, decreased Alb, now weakness and diffuse edema. Acetaminophen (Tylenol Tab*) 650 mg PO Q4H PRN PRN Reason: FEVER/PAIN Alfuzosin HCl (Uroxatral (Nf)) 10 mg PO QAM [facility] Last Admin: 01/22/19 08:26 Dose: Not Given Cyanocobalamin (Vitamin B12 Tab*) 1,000 mcg PO QAM [facility] Last Admin: 01/22/19 08:22 Dose: 1,000 mcg Famotidine (Pepcid Tab*) 20 mg PO QPM [facility] Last Admin: 01/21/19 17:58 Dose: 20 mg Furosemide (Lasix Iv*) 40 mg IV SLOW PU DAILY [facility] Last Admin: 01/22/19 08:22 Dose: 40 mg Pantoprazole Sodium (Protonix Tab*) 40 mg PO QAM [facility] Last Admin: 01/22/19 08:22 Dose: 40 mg Pregabalin (Lyrica Cap(*)) 200 mg PO BEDTIME [facility] Last Admin: 01/21/19 21:42 Dose: 200 mg Pregabalin (Lyrica Cap(*)) 25 mg PO BEDTIME [facility] Last Admin: 01/21/19 21:42 Dose: 25 mg Rivaroxaban (Xarelto(*)) 10 mg PO QPM [facility] Last Admin: 01/21/19 17:59 Dose: 10 mg Objective: [] Vital Signs Temp Pulse Resp BP Pulse Ox 98.6 F 101 24 99/44 93 01/22/19 07:23 01/22/19 07:23 01/22/19 07:23 01/22/19 07:23 01/22/19 07:23 HEENT: pale, no thrush CTA RRR s1S2 and tachy Boated , non tender, obese Diffuse edema, arms legs Neuro: - resting tremor, BL. - could not complete finger to nose R, could on L - no pronator drift - cranial nerves intact - 4/5 distal muscle strength, 1/5 proximal labs with consistent anemia Alb 1.7 LDH NML Retic low PET scan with marked increase in LAD as compared to CT 02/2018. SVU 4-5. spleen small and unchanged pathology LN: SLL, CD5+ cell population, kappa restricted. New malignant population compared to bmbx 08/2017. Ki-67 5% Assessment: []83 year old with marked deterioration over several months presenting with anemia, progressive malnutrition, proximal muscle weakness and marked resting tremor making it difficult to eat with R hand. 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 While he has new diagnosis and progression from 02/2018 tumor burden does not explain current symptoms. Differential for progressive malnutrition includes, tremor and inability to eat , paraneoplastic syndrome, anorexia from lymphoma. Ddx: for tremor includes CVA , para-neoplastic, primary motor neuro disease. Plan: []1. CLL. Still disconnect between severity of symptoms and pathology. - re-check bone marrow biopsy. - FISH panel for 17p 2. Tremor. -MRI brain - If negative, Neuro consult. - Eat with Left hand - check para neoplastic panel 3. Malnutrition. - Ensure with meals and consultation Nutrition. - PT/OT - NHP - Check pre-alb 4. Anemia. Follow today Tx as needed.
--- NOTE | 2019-01-22 10:58 | ECHO ---
*[facility]* [place] [address] Fax #: [phone] Transthoracic Echocardiogram Patient: Kaden Salazar : 1935 Study Date: 01/22/2019 Age: 83 Gender: M HR: 96 bpm Height: 65 in /165.1 cm BSA: 1.87 m^2 Weight: 174.6 lb /79.4 kg BMI: 29.1 kg/m^2 *Undertaker Helper: * Peggy Joy RD *Referring Physician: * Aleks Mena *Reading Physician: * Mario Hernandez MD History: Lymphoma with rx,edema,anemia,GERD. Risk factors: Hypertension. Conclusions Summary: 1. Left ventricle: Systolic function is normal. The estimated ejection fraction is 55-60%. Wall motion is normal; there are no regional wall motion abnormalities. 2. Mitral valve: There is no evidence of stenosis. There is no significant regurgitation. 3. Aortic valve: There is no evidence of stenosis. 4. Tricuspid valve: There is mild regurgitation. 5. Aorta: The aorta is well visualized and normal size. 6. Pericardium, extracardiac: There is no pericardial effusion. There is a small left pleural effusion. 7. Study data: No prior study is available for comparison. Study data: Transthoracic echocardiogram. Procedure: Transthoracic echocardiography was performed. Image quality was good. Complete 2D, spectral Doppler, and color flow Doppler. Patient status: Observation. Patient room number: 337. No prior study is available for comparison. Rhythm: Normal sinus rhythm. Findings Left ventricle: The cavity size is normal. Wall thickness is increased. Systolic function is normal. The estimated ejection fraction is 55-60%. Wall motion is normal; there are no regional wall motion abnormalities. Doppler parameters are consistent with abnormal left ventricular relaxation (grade 1 diastolic dysfunction). Right ventricle: Well visualized. The cavity size is normal. Wall thickness is normal. Systolic function is normal. Ventricular septum: Well visualized. Left atrium: Well visualized. The atrium is normal in size. Right atrium: Well visualized. The atrium is normal in size. Mitral valve: Well visualized. The leaflets are mildly thickened. No echocardiographic evidence for prolapse. There is no evidence of stenosis. There is no significant regurgitation. Aortic valve: Well visualized. The valve is trileaflet. The leaflets are mildly thickened. There is no evidence of stenosis. There is no significant regurgitation. Tricuspid valve: Well visualized. The leaflets are normal thickness. There is no evidence of stenosis. There is mild regurgitation. Pulmonic valve: Well visualized. The leaflets are normal thickness. There is no evidence of stenosis. There is no significant regurgitation. Aorta: The aorta is well visualized and normal size. The aortic root is not dilated. Pericardium: There is no pericardial effusion. There is a small left pleural effusion. Pulmonary arteries: Well visualized. Systemic veins: Well visualized. Inferior vena cava: The vessel is normal in size. Pulmonary veins: Visualization of the pulmonary venous anatomy is incomplete, but a significant abnormality is unlikely. Measurements Left ventricle Value Ref Aortic valve Value Ref MONSERRAT, LAX (L) 4.1 cm 4.2 - Monica diam, ED 2.0 cm ----- 5.8 Monica diam/bsa, ED 1.1 cm/m^2 ----- ESD, LAX 3.1 cm 2.5 - Peak v, S 1.55 m/sec ----- 4.0 VTI, S 27.8 cm ----- FS, LAX (L) 24 % Mean grad, S 5.0 mm Hg ----- PW, ED, LAX (H) 1.2 cm 0.6 - Peak grad, S 10.0 mm Hg ----- 1.0 LVOT/AV, VTI ratio 0.55 ----- FS (L) 24 % Mid-wall FS 10 % -------- Mitral valve Value Ref PW, ED (H) 1.2 cm 0.6 - Peak E 0.38 m/sec ----- 1.0 Peak A 0.87 m/sec ----- PW/ID, ED 0.29 -------- Decel time 90 ms ----- E', lat monica, TDI (L) 5.7 cm/sec >=10.0 Peak E/A ratio 0.4 - ---- E/e', lat monica, TDI 7 -------- E', med monica, TDI (L) 3.1 cm/sec >=7.0 Pulmonic valve Value R ef E/e', med monica, TDI 12 -------- Peak v, S 0.45 m/sec ---- - E', avg, TDI 4.4 cm/sec -------- Peak grad, S 1.0 mm Hg ---- - E/e', avg, TDI 9 <=14 Tricuspid valve Value Ref LVOT Value Ref TR peak v (H) 2.94 m/sec <=2.8 Peak licha, S 0.88 m/sec -------- Peak RV-RA grad, S 35 mm Hg ----- VTI, S 15.2 cm -------- Max TR licha 2.94 m/sec ----- Mean grad, S 2 mm Hg -------- Aortic root Value Ref Ventricular septum Value Ref Root diam 3.1 cm <4.0 IVS, ED (H) 1.2 cm 0.6 - Root max diam, ED 3.1 cm <4.0 1.0 Ascending aorta Value Ref Right ventricle Value Ref AAo AP diam, S 3.3 cm ----- MONSERRAT, LAX 3.6 cm -------- AAo AP diam/bsa, S 1.8 cm/m^2 ----- MONSERRAT minor ax, A4C (H) 4.0 cm 1.9 - mid 3.5 Aortic arch Value Ref Arch diam 2.9 cm ----- Left atrium Value Ref ML dim, A4C 4.5 cm -------- Decending aorta Value Ref SI dim, A4C 4.6 cm -------- Nikc peak licha 0.46 m/sec ----- Vol/bsa, ES, 1-p 21 ml/m^2 12 - 37 A4C Inferior vena cava Value Ref Vol/bsa, ES, A/L 27 ml/m^2 16 - 34 Diam 2.1 cm ----- Right atrium Value Ref SI dim, ES (H) 5.5 cm 3.4 - 5.3 ML dim, ES, A4C 3.1 cm 2.6 - 4.4 SI dim, ES, A4C (H) 5.4 cm 3.4 - 5.3 SI dim/bsa, ES, A4C 2.9 cm/m^2 1.8 - 3.0 Estimated RAP 3 mm Hg -------- Legend: (L) and (H) filippo values outside specified reference range. Prepared and electronically signed by Mario Hernandez MD 01/22/2019 10:57
[2019-01-22] MEDS ORDERED: Gadoteridol* (CONTRAST) 279.3 MG/ML 10 ML IV ONE (15:43)
[2019-01-22] MEDS: Famotidine TAB* 20 MG PO SCH (17:36)
[2019-01-22] MEDS: Rivaroxaban TAB(*) 10 MG PO SCH (17:36)
[2019-01-22] MEDS: Pregabalin CAP(*) 25 MG PO SCH (21:10)
[2019-01-22] MEDS: Pregabalin CAP(*) 100 MG PO SCH (21:10)
[2019-01-23 05:49] LABS: Hematocrit 24 % (42-52); Hemoglobin 8.2 g/dL (14.0-18.0); Mean Corpuscular HGB Conc 34 g/dL (31-36); Mean Corpuscular Hemoglobin 28 pg (27-31); Mean Corpuscular Volume 84 fL (80-94); Mean Platelet Volume 7.4 fL (7.4-10.4); Platelet Count 176 10^3/uL (150-450); Red Blood Count 2.87 10^6 /uL (4.18-5.48); Red Cell Distribution Width 18 % (10-15)
[2019-01-23 05:58] LABS: Albumin 1.7 g/dL (3.2-5.2); Albumin/Globulin Ratio 0.6 (1-3); BUN/Creatinine Ratio 20.6 (8-20); Calcium 7.5 mg/dL (8.6-10.3); EGFR African American 146.5 (>60); Globulin 2.9 g/dL (2-4); Potassium 3.7 mmol/L (3.5-5.0); Total Bilirubin 0.8 mg/dL (0.2-1.0); Total Protein 4.6 g/dL (6.4-8.9)
[2019-01-23 06:24] LABS: ABS Lymphocytes 2.5 10^3/ul (1.0-4.8); ABS Monocytes 0.9 10^3/ul (0-0.8); ABS Neutrophils 2.6 10^3/ul (1.5-7.7); Eosinophil % 0.7 %; Lymphocyte % 41.6 %
[2019-01-23] MEDS: Cyanocobalamin TAB* 500 MCG PO SCH (09:49)
[2019-01-23] MEDS: Pantoprazole TAB * 40 MG TAB PO SCH (09:49)
[2019-01-23] MEDS: ALFUZOSIN 10 MG PO SCH (09:57)
[2019-01-23] MEDS: Furosemide IV* 10 MG/ML VIAL (40 MG) IV SLOW PU SCH (12:14)
--- NOTE | 2019-01-23 12:15 | PN ---
Progress Note - Progress Note Date of Service: 01/23/19 SOAP: Subjective: []Feels good today. Feels like tremor is less. Glad to hear MRI brain results without acute findings. Remains very edematous and nursing worried about BP with diuretic. Medications: Acetaminophen (Tylenol Tab*) 650 mg PO Q4H PRN PRN Reason: FEVER/PAIN Alfuzosin HCl (Uroxatral (Nf)) 10 mg PO QAM [facility] Last Admin: 01/23/19 09:57 Dose: Not Given Cyanocobalamin (Vitamin B12 Tab*) 1,000 mcg PO QAM [facility] Last Admin: 01/23/19 09:49 Dose: 1,000 mcg Famotidine (Pepcid Tab*) 20 mg PO QPM [facility] Last Admin: 01/22/19 17:36 Dose: 20 mg Furosemide (Lasix Iv*) 40 mg IV SLOW PU DAILY [facility] Last Admin: 01/23/19 12:14 Dose: Not Given Pantoprazole Sodium (Protonix Tab*) 40 mg PO QAM [facility] Last Admin: 01/23/19 09:49 Dose: 40 mg Pregabalin (Lyrica Cap(*)) 200 mg PO BEDTIME [facility] Last Admin: 01/22/19 21:10 Dose: 200 mg Pregabalin (Lyrica Cap(*)) 25 mg PO BEDTIME [facility] Last Admin: 01/22/19 21:10 Dose: 25 mg Rivaroxaban (Xarelto(*)) 10 mg PO QPM [facility] Last Admin: 01/22/19 17:36 Dose: 10 mg Trimethoprim/Sulfamethoxazole (Bactrim Ds 800/160 Tab*) 1 tab PO DAILY [facility] Objective: [] Vital Signs Temp Pulse Resp BP Pulse Ox 97.8 F 100 18 104/44 96 01/23/19 11:24 01/23/19 11:24 01/23/19 11:24 01/23/19 11:24 01/23/19 11:24 A&Ox3, EOMI, no acute distress Very faint resting tremor, good strength = bilat., CARTER, neuro otherwise grossly non-focal HRR, S1S2 LS dim. +3 pitting edema LE Laboratory Results - last 24 hr 01/23/19 01/23/19 04:57 04:57 WBC 6.0 RBC 2.87 L Hgb 8.2 L Hct 24 L MCV 84 MCH 28 MCHC 34 RDW 18 H Plt Count 176 MPV 7.4 Neut % (Auto) 43.2 Lymph % (Auto) 41.6 [place] % (Auto) 14.3 Eos % (Auto) 0.7 Baso % (Auto) 0.2 Absolute Neuts (auto) 2.6 Absolute Lymphs (auto) 2.5 Absolute Monos (auto) 0.9 H Absolute Eos (auto) 0.0 Absolute Basos (auto) 0.0 Absolute Nucleated RBC 0.0 Nucleated RBC % 0.0 Sodium 137 Potassium 3.7 Chloride 101 Carbon Dioxide 35 H Anion Gap 1 L BUN 13 Creatinine 0.63 L Est GFR ( Amer) 146.5 Est GFR (Non-Af Amer) 121.0 BUN/Creatinine Ratio 20.6 H Glucose 106 H Calcium 7.5 L Total Bilirubin 0.80 AST 8 L ALT 4 L Alkaline Phosphatase 97 Total Protein 4.6 L Albumin 1.7 L Globulin 2.9 Albumin/Globulin Ratio 0.6 L Microbiology 01/21/19 09:38 Urine Culture - Final Urine Enterobacter Hormaechei MRI BRAIN W/WO IMPRESSION: 1. NO EVIDENCE FOR ACUTE INTRACRANIAL ABNORMALITY. 2. DIFFUSE ATROPHY. 3. BILATERAL EFFUSIONS WITHIN THE MASTOID AIR CELLS. <Electronically signed by Diego White MD in OV> 01/22/191815 Dictated By: Diego White MD Dictated Date/Time: 01/22/191815 Transcribed Date/Time: 01/22/191808 Assessment: []83 year old with marked deterioration over several months presenting with anemia, progressive malnutrition, proximal muscle weakness, and marked resting tremor making it difficult to eat with R hand. 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 While he has a new cancer diagnosis his constellation of symptoms seem excessive to the diagnosis and imaging. Plan: []1. CLL: Still disconnect between severity of symptoms and pathology. - re-check bone marrow biopsy. - FISH panel for 17p - send for flow lymphoma as well 2. Tremor slightly improved today - MRI brain negative, - consider neuro consult - Eat with Left hand - para neoplastic panel pending - question of underlying dementia r/t MRI findings 3. Severe protein-caloric Malnutrition: - Ensure with meals and consult Nutrition - PT/OT - NHP 4. Anemia: follow counts, work-up with bone marrow biopsy - BMB tomorrow 01/24 5. UTI: start Bactrim
[2019-01-23] MEDS: Sulfamethox/Trimethoprim DS 800/160* TAB PO SCH (13:18)
[2019-01-23] MEDS: Rivaroxaban TAB(*) 10 MG PO SCH (17:40)
[2019-01-23] MEDS: Famotidine TAB* 20 MG PO SCH (17:40)
[2019-01-23] MEDS ORDERED: Furosemide IV* 10 MG/ML 2 ML VIAL (20 MG) IV ONE (18:05)
[2019-01-23] MEDS: Pregabalin CAP(*) 25 MG PO SCH (21:27)
[2019-01-23] MEDS: Pregabalin CAP(*) 100 MG PO SCH (21:27)
[2019-01-24] MEDS ORDERED: Furosemide IV* 10 MG/ML VIAL (40 MG) IV SLOW PU SCH (09:00)
[2019-01-24] MEDS ORDERED: Lidocaine 2% 10 ML* VIAL ONE (09:34)
--- NOTE | 2019-01-24 09:43 | PN ---
Progress Note - Progress Note Date of Service: 01/24/19 SOAP: Subjective: []Feeling OK. Has been eating better. Tremor mild this AM, "yesterday it was all gone but I got a little today." Has not had difficulty feeding himself during admission. 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 Medications: Acetaminophen (Tylenol Tab*) 650 mg PO Q4H PRN PRN Reason: FEVER/PAIN Alfuzosin HCl (Uroxatral (Nf)) 10 mg PO QAM [facility] Last Admin: 01/23/19 09:57 Dose: Not Given Cyanocobalamin (Vitamin B12 Tab*) 1,000 mcg PO QAM [facility] Last Admin: 01/23/19 09:49 Dose: 1,000 mcg Famotidine (Pepcid Tab*) 20 mg PO QPM [facility] Last Admin: 01/23/19 17:40 Dose: 20 mg Furosemide (Lasix Iv*) 40 mg IV SLOW PU DAILY [facility] Lidocaine HCl (Lidocaine 2% 10 Ml*) 10 ml .SEE ORDER ONCE ONE Stop: 01/24/19 09:35 Pantoprazole Sodium (Protonix Tab*) 40 mg PO QAM [facility] Last Admin: 01/23/19 09:49 Dose: 40 mg Pregabalin (Lyrica Cap(*)) 200 mg PO BEDTIME [facility] Last Admin: 01/23/19 21:27 Dose: 200 mg Pregabalin (Lyrica Cap(*)) 25 mg PO BEDTIME [facility] Last Admin: 01/23/19 21:27 Dose: 25 mg Rivaroxaban (Xarelto(*)) 10 mg PO QPM [facility] Last Admin: 01/23/19 17:40 Dose: 10 mg Trimethoprim/Sulfamethoxazole (Bactrim Ds 800/160 Tab*) 1 tab PO DAILY [facility] Stop: 01/26/19 12:59 Last Admin: 01/23/19 13:18 Dose: 1 tab Objective: [] Vital Signs Temp Pulse Resp BP Pulse Ox 97.6 F 91 16 91/40 100 01/24/19 07:29 01/24/19 07:29 01/24/19 07:29 01/24/19 07:29 01/24/19 07:29 A&Ox3, EOMI Very minimal tremor present HRR, S1S2 LS clear +BS +2-3 pitting edema LEs Assessment: []83 year old with marked deterioration over several months presenting with anemia, progressive malnutrition, proximal muscle weakness, and marked resting tremor making it difficult to eat with R hand. 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 While he has a new cancer diagnosis his constellation of symptoms seem excessive to the diagnosis and imaging. Plan: []1. CLL: Disconnect between severity of symptoms and pathology. - bone marrow biopsy today - FISH panel for 17p, MDS, and flow lymphoma as well 2. Tremor improved today - MRI brain negative, - consider neuro consult however I feel this can be done as an outpatient - para neoplastic panel pending - question of underlying dementia r/t MRI findings 3. Severe protein-caloric Malnutrition: improved PO intake during admission - SNF @ d/c 4. Anemia: BMB today 5. UTI: Bactrim x3 days Stable for discharge following bone marrow biopsy with outpatient f/u
[2019-01-24] MEDS: Cyanocobalamin TAB* 500 MCG PO SCH (10:02)
[2019-01-24] MEDS: ALFUZOSIN 10 MG PO SCH (10:02)
[2019-01-24] MEDS: Sulfamethox/Trimethoprim DS 800/160* TAB PO SCH (10:03)
[2019-01-24] MEDS: Pantoprazole TAB * 40 MG TAB PO SCH (10:03)
[2019-01-24] MEDS ORDERED: Furosemide IV* 10 MG/ML VIAL (40 MG) IV SLOW PU ONE (10:03)
--- NOTE | 2019-01-24 10:40 | PROCNOTE ---
Hematology/Oncology Procedure Hematology/Oncology Procedure Note: Bone Marrow Biopsy: Informed consent obtained. Time out performed per protocol. Anesthesia, lidocaine 2%, approx. 4 mLs, administered per protocol with good effect. Bone marrow biopsy and aspirate performed to left posterior superior iliac crest without obvious complications. Minimal blood loss. Pt. tolerated well. Dressing applied, reviewed instructions to maintain pressure for approx. 20 min and removal of dressing after 24 hours. update regarding pt. status and plan for f/u with results.
[2019-01-24 11:47] VITALS: BP 106/50
--- NOTE | 2019-01-24 12:20 | DS ---
- Discharge Summary Admission Date: 01/21/19 Discharge Date: 01/24/19 Discharge Diagnosis: 1. CLL: s/p bone marrow biopsy 2. Edema: secondary to hypoalbuminemia 3. Tremor: appears resolved, may be 2/2 malnutrition Discharge Medications: Medication Instructions Recorded Confirmed Type Cyanocobalamin TAB* [Vitamin B12 1,000 mcg PO QAM 10/09/13 01/21/19 History TAB*] Alfuzosin HCl [Alfuzosin HCl ER] 10 mg PO QAM 01/11/19 01/21/19 History Omeprazole 40 mg PO QAM 01/11/19 01/21/19 History Pregabalin [Lyrica] 225 mg PO BEDTIME 01/11/19 01/21/19 History Rivaroxaban TAB(*) [Xarelto 10 mg 10 mg PO QPM 01/11/19 01/21/19 History (*)] raNITIdine HCl [Ranitidine HCl] 150 mg PO QPM 01/11/19 01/21/19 History Acetaminophen TAB* [Tylenol TAB*] 650 mg PO Q4H PRN tab 01/24/19 Rx Furosemide TAB* [Lasix TAB*] 20 mg PO DAILY #0 tab 01/24/19 Rx Sulfamethox/Trimethoprim DS* 1 tab PO DAILY #0 tab MDD last 01/24/19 Rx [Bactrim DS 800/160 TAB*] dose 01/25 Disposition: [facility] Facility Condition: Stable Diet: high protein, ensure TID Activity: per PT to improve ambulation Hospital Course: Please see admission note for full H&P, however briefly, Mr. Salazar is well know to our service due to his prior diagnosis of lymphoplasmacytic lymphoma treated previously with BR. He was recently diagnosed with CLL (CD5+). He presented to the ER on 01/21 with severe edema and a declining performance status over several weeks. Concern for a disconnect between his new diagnosis and severity of his symptoms lead to an admission for management. He received IV diuretics and an echo was obtained that did not reveal CHF. On 01/22 Dr. Brewer saw the patient and was concerned about a new tremor therefore an MRI of the brain was obtained, this revealed only diffuse atrophy. A paraneoplastic panel was sent out as well and is currently pending. It was felt that his severe malnutrition and hypoalbuminemia was driving his weakness and edema. As of 01/23 his tremor had improved and his edema was stable to very slightly improved. He has been eating better since admission and working with PT. Today, 01/24, Mr. Salazar had a bone marrow biopsy for complete work-up of his CLL. We will consider a neuro consult as an outpatient for work-up of early stage dementia. Mrs. Salazar feels she can no long care for him safely at home and therefore he will be discharged to a detention facility. He will follow-up with out office on 02/05 to discuss results of his bone marrow biopsy and any lab results that have returned. Mrs. Salazar stated she does not believe Mr. Salazar could tolerate chemotherapy again in the future. For now he will be managed conservatively with supportive services until full evaluation is completed. >40 min spent with >50% face to face counseling
[2019-01-25] MEDS ORDERED: Furosemide TAB* 20 MG PO SCH (09:00)
[2019-01-29 16:21] LABS: Anti-Glial/Neuronal Nuc Ab-1 A Negative titer (<1:240); Anti-Neuronal Nuclear Ab Type1 Negative titer (<1:240); Anti-Neuronal Nuclear Ab Type2 Negative titer (<1:240); Anti-Neuronal Nuclear Ab Type3 Negative titer (<1:240); Anti-Striated Muscle Antibody Negative titer (<1:120); CRMP-5 IgG Antibody Negative titer (<1:240); Purkinje Cell Cytoplasm Typ Tr Negative titer (<1:240); Purkinje Cell Cytoplasm Type 1 Negative titer (<1:240); Purkinje Cell Cytoplasm Type 2 Negative titer (<1:240)
[2019-01-29 16:54] LABS: CLL Result Summary Normal; CLL Source LPIC
== END 2019-01-24 14:40 | DRG 840 ==
LOC: ED 09:16 → SSU 14:53 → OBSVTOIN 01-22 09:47
PROVIDERS: ADMIT Internal Medicine Hematology & Oncology; ATTEND Internal Medicine Hematology & Oncology
PROC: 30233N1 Transfusion of Nonautologous Red Blood Cells into Peripheral Vein, Percutaneous Approach (ICD-10-PCS; 2019-01-21)
PROC: 07DR3ZX Extraction of Iliac Bone Marrow, Percutaneous Approach, Diagnostic (ICD-10-PCS; principal; 2019-01-24)
DX: C91.10 Chronic lymphocytic leukemia of B-cell type not having achieved remission (principal); E43 Unspecified severe protein-calorie malnutrition; J90 Pleural effusion, not elsewhere classified; N39.0 Urinary tract infection, site not specified; K21.9 Gastro-esophageal reflux disease without esophagitis; I10 Essential (primary) hypertension; D63.0 Anemia in neoplastic disease; Z66 Do not resuscitate; E78.00 Pure hypercholesterolemia, unspecified; G47.30 Sleep apnea, unspecified; N40.0 Benign prostatic hyperplasia without lower urinary tract symptoms; H26.9 Unspecified cataract; M19.019 Primary osteoarthritis, unspecified shoulder; M16.12 Unilateral primary osteoarthritis, left hip; M47.9 Spondylosis, unspecified; G62.9 Polyneuropathy, unspecified; Z96.653 Presence of artificial knee joint, bilateral; R25.1 Tremor, unspecified; Z68.30 Body mass index [BMI] 30.0-30.9, adult; Z86.718 Personal history of other venous thrombosis and embolism; Z90.49 Acquired absence of other specified parts of digestive tract; Z88.8 Allergy status to other drugs, medicaments and biological substances; Z88.5 Allergy status to narcotic agent; Z87.442 Personal history of urinary calculi; Z86.711 Personal history of pulmonary embolism; Z82.49 Family history of ischemic heart disease and other diseases of the circulatory system; Z87.891 Personal history of nicotine dependence; Z85.72 Personal history of non-Hodgkin lymphomas
CPT/HCPCS: 36415; 38222; 70030; 70553; 71045; 80048; 80053; 81003; 81015; 83519; 83520; 83605; 83735; 83880; 84134; 84484; 85025; 85060; 85097; 86255; 86256; 86850; 86900; 86901; 86922; 87077; 87086; 87186; 88184; 88187; 88188; 88189; 88271; 93005; 93306; 99222; 99233; 99239; 99285; A9270-GY; A9579; G0378; G8978-GP-CM; G8979-GP-CI; G8987-GO-CL; G8988-GO-CK; J1940; P9040